=== PATIENT | female | born 1975 | race Caucasian/White ===

== ENCOUNTER 2020-07-23 07:39 | Emergency (ER) | payer BC ==
[~2020-07-23] VITALS: Ht 167.6 cm; Wt 95.5 kg
[2020-07-23 07:44] VITALS: Ht 167.6 cm; Wt 95.5 kg
[2020-07-23 08:20] LABS: BASOPHILS 0.2 % (0-2); EOSINOPHILS 1.2 % (0-7); HEMATOCRIT 38.6 % (36.0-48.0); HEMOGLOBIN 12.7 g/dL (12-16); IMMATURE GRANULOCYTES 0.5 % (0-5); LYMPHOCYTE ABS# 2.27 10x3/uL (1.18-3.74); LYMPHOCYTES 22.5 % (15-50); MCH 27.6 pg (26.0-34.0); MCHC 32.9 g/dL (31.0-37.0); MCV 83.9 fL (80.0-100.0); MEAN PLATELET VOLUME 10.5 fL (7.4-10.4); MONOCYTES 5.5 % (2-11); NEUTROPHIL ABS# 7.08 10x3/uL (1.56-6.13); NEUTROPHILS 70.1 % (40-80); PLATELET COUNT 223 10x3/uL (130-400); WBC 10.1 10x3/uL (4.8-10.8)
[2020-07-23 08:28] LABS: APTT 26.4 SECONDS (22.8-39.4); INR 1.12 (0.85-1.17); PROTIME 13.4 SECONDS (11.6-15.0)
[2020-07-23 08:43] LABS: ALKALINE PHOSPHATASE 55 U/L (30-120); ALT (SGPT) 20 U/L (10-68); BILIRUBIN - TOTAL 0.27 mg/dL (0.2-1.3); CALC OSMOLALITY 274 mosm/kg (275-300); CALCIUM 8.2 mg/dL (8.5-10.1); CHLORIDE - SERUM 104 mmol/L (98-107); CKMB 0.5 U/L (0.0-3.6); CREATINE KINASE 69 UL (21-215); CREATININE - SERUM 0.7 mg/dL (0.6-1.3); GLUCOSE 107 mg/dL (74-106); POTASSIUM - SERUM 3.3 mmol/L (3.5-5.1); PRO BNP 84 pg/mL (0-125); PROTEIN - SERUM 6.8 g/dL (6.4-8.2); SODIUM 138 mmol/L (136-145); UREA NITROGEN 9 mg/dL (7-18); eGFR NON AFRICAN AMERICAN > 90 mL/min (90-120)
[2020-07-23 08:44] LABS: TROPONIN-I < 0.017 ng/mL (0.000-0.060)
[2020-07-23 09:52] VITALS: BP 110/56
[2020-07-23 10:24] LABS: ALBUMIN 3.3 g/dL (3.4-5.0); CARBON DIOXIDE 18.7 mmol/L (21.0-32.0)
== END 2020-07-23 09:52 | disposition home or self-care (01) ==
LOC: D.ER 07:39
PROVIDERS: Family Medicine
DX: R06.02 Shortness of breath (principal); R06.09 Other forms of dyspnea